=== PATIENT | male | born 1955 | race Hispanic/Latino ===

== ENCOUNTER 2025-05-20 08:48 | Emergency (ER) | payer OTHER, MEDICARE, MEDICAID ==
[~2025-05-20] VITALS: Ht 157.5 cm; Wt 81.6 kg
[2025-05-20] MEDS: ORPHENADRINE 60MG/2ML IM ONE (09:37)
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
[2025-05-20] MEDS ORDERED: METH-662 PO (10:50)
[2025-05-20] MEDS ORDERED: NAPR-1196 PO (10:50)
--- NOTE | 2025-05-20 11:03 | HMCIMG ---
EXAM: CR Lumbar Spine, 3 View. CLINICAL HISTORY: BACK PAIN COMPARISON: None provided. FINDINGS: Gentle levocurvature of the lumbar spine centered at L3. Straightening of the lumbar spine may reflect paraspinal muscle spasm. Lumbar spondylosis evident by anterior osteophytes and syndesmophytes at multiple levels. Mild multilevel degenerative disc disease. Mild grade 1 anterolisthesis of L3 with respect to L4 related to facet joint osteoarthritis. No displaced fracture appreciated. Atherosclerotic vascular calcifications were noted. Suspected infrarenal abdominal aortic aneurysm that may be further characterized with CT angiography. IMPRESSION: 1. No acute osseous injury. 2. Mild grade 1 anterolisthesis of L3 on L4 due to facet arthropathy. 3. Suspected infrarenal abdominal aortic aneurysm; CT angiography recommended for further evaluation. /[place]
--- NOTE | 2025-05-20 12:35 | HMCIMG ---
EXAM: CT Abdomen and Pelvis Without IV contrast. CLINICAL HISTORY: ABNORMAL XRAY. TECHNIQUE: Axial computed tomography images of the abdomen and pelvis without intravenous contrast. CONTRAST: No IV contrast. COMPARISON: None provided. FINDINGS: LUNG BASES: The lung bases appear clear. No pleural effusions are seen. LIVER: Unremarkable. GALLBLADDER AND BILE DUCTS: The gallbladder appears within normal limits. No radioopaque gallstones are seen. No biliary ductal dilatation is evident. PANCREAS: Unremarkable. SPLEEN: Unremarkable. ADRENAL GLANDS: Unremarkable. KIDNEYS, URETERS, AND BLADDER: The kidneys appear within normal limits. There is no hydronephrosis or hydroureter. No urinary calculi are seen. STOMACH AND BOWEL: Unremarkable appearance of the stomach and bowel. No evidence of bowel obstruction. No evidence suggesting enteritis or colitis. Mild constipation is seen. Redundant course of sigmoid colon is seen. APPENDIX: No evidence of acute appendicitis on CT examination. PERITONEUM: No free fluid. No free air. LYMPH NODES: No lymphadenopathy is evident. REPRODUCTIVE: Mild prostatomegaly is seen. VASCULATURE: Multifocal areas of atherosclerotic changes in the aorta and its branches. Focal aneurysmal dilatation of the abdominal aorta is seen just before the bifurcation (diameter approximately 3.4 cm). BONES: No aggressive appearing osseous lesion. No acute osseous pathology is evident. Spondylotic changes in the visualised spine. IMPRESSION: 1. No acute intraabdominal or pelvic pathology. 2. Infrarenal abdominal aortic aneurysm measuring 3.4 cm. /[place]
--- NOTE | 2025-05-20 12:52 | EKG ---
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
[2025-05-20 13:37] VITALS: BP 131/88; PULSE 61; RESP 18; TEMP 98; O2SAT 100
--- NOTE | 2025-05-20 13:38 | NUR ---
DC PATIENT WAS DC'D BY DR JOSE TODAY PER DR JOSE, FOR PATIENT TO FOLLOW UP WITH PCP REGARDING ABDOMINAL ANEURSYM I EXPLAINED TO PATIENT TO FOLLOW UP WITH PCP, AND PROVIDED INFO BASED ON DIAGNOSIS AND NEW PRESCRIPTIONS PATIENT AMBULATED OUT OF ED, NO COMPLICATIONS
== END 2025-05-20 13:35 | disposition home or self-care (01) ==
LOC: MERGE 08:48 → EDH 08:48
DX: S39.012A Strain of muscle, fascia and tendon of lower back, initial encounter (principal); E78.00 Pure hypercholesterolemia, unspecified; I10 Essential (primary) hypertension; V89.2XXA Person injured in unspecified motor-vehicle accident, traffic, initial encounter; Y93.89 Activity, other specified; Y92.488 Other paved roadways as the place of occurrence of the external cause; Y99.8 Other external cause status
CPT/HCPCS: 99285; 74176; 72100; 96372 ×2; 93005; J1885; J2360